=== PATIENT | male | born 1975 | race Caucasian/White ===

== ENCOUNTER → 2021-10-30 10:06 | Outpatient (CLI) | payer OTHER, SELFPAY ==
--- NOTE | ~2021-10-30 | US_ITS ---
US right upper quadrant INDICATION: Elevated liver enzymes PROCEDURE: Realtime right upper abdominal ultrasound. COMPARISON: No prior studies for comparison. FINDINGS: The pancreas is normal without focal mass or pancreatic ductal dilation. Echotexture is in creased, consistent with fatty infiltration. There is normal directional flow in the portal vein. The gallbladder is normal without stones, gallbladder wall thickening or pericholecystic fluid. Comm on bile duct measures 4 mm. No sonographic Neri's sign. IMPRESSION: 1: Hepatic steatosis. Reviewed, dictated and finalized at location A. IMPRESSION: 1: Hepatic steatosis.
== END ==
PROVIDERS: PCP Internal Medicine; Visit Provider Clinical Nurse Specialist
DX: R74.01 Elevation of levels of liver transaminase levels (principal); K76.0 Fatty (change of) liver, not elsewhere classified
CPT/HCPCS: 76705

== ENCOUNTER → 2022-04-04 11:50 | Outpatient (CLI) | payer OTHER, SELFPAY ==
--- NOTE | ~2022-04-04 | XR_ITS ---
EXAMINATION: XR chest 2V DATE: 04/04/2022 12:01 INDICATION: Shortness of breath and cough TECHNIQUE: PA and lateral views of the chest are obtained. COMPARISON: None available FINDINGS: The lungs are free of acute opacities. No pleural effusion or pneumothorax. The cardiomedia stinal silhouette is normal. The visualized bones and soft tissues are unremarkable. IMPRESSION: 1. No acute cardiopulmonary abnormality. Reviewed, dictated and finalized at location B. [employer]
== END ==
PROVIDERS: PCP Nurse Practitioner; Visit Provider Nurse Practitioner
DX: R05.9 Cough, unspecified (principal); R06.02 Shortness of breath
CPT/HCPCS: 71046

== ENCOUNTER 2022-04-07 10:04 | Outpatient (CLI) | payer OTHER, SELFPAY ==
[2022-04-07 20:26] LABS: Prostate Specific Antigen 9.3 ng/mL (< OR = 4.0)
== END 2022-04-07 10:05 | disposition home or self-care (01) ==
LOC: ANHGOSHLAB 10:05
PROVIDERS: PCP Internal Medicine; Visit Provider Internal Medicine
DX: R97.20 Elevated prostate specific antigen [PSA] (principal)
CPT/HCPCS: 36415; 84153

== ENCOUNTER 2022-07-27 08:53 | Emergency (ER) | payer OTHER, SELFPAY ==
--- NOTE | 2022-07-27 09:09 | ED.URI ---
HPI - URI/Sore Throat General Chief Complaint: Upper Respiratory Infection Stated Complaint: sore throat, sinus drainage Source: patient and RN notes reviewed History of Present Illness HPI Narrative: 46-year-old male presents urgent care with complaints of a sore throat and congestion in his chest. Patient reports a cough that is worse at nighttime in the morning. Reports left ear pain yesterday. Patient denies any sinus congestion, fevers, chills, chest pain, shortness of breath, vomiting, or diarrhea. Patient has been taking NyQuil to help him sleep. Some parts of this dictation were generated by voice recognition software and may contain typographical and/or grammatical inaccuracies. Related Data Allergies Allergy/AdvReac Type Severity Reaction Status Date / Time No Known Allergies Allergy Verified 07/27/22 09:05 Review of Systems Review of Systems: Pertinent positives and pertinent negatives per HPI. [facility] Past Medical History Medical History Elevated blood pressure reading in office with diagnosis of hypertension Hypogonadism in male Long-term current use of testosterone replacement therapy Obesity Sleep apnea Surgical History Surgical History Hx of LASIK 2009 Hx of tonsillectomy S/P knee surgery Family History Family History Grandparent Family history of malignant neoplasm of bone Father Family history of malignant neoplasm of thyroid Liver cancer, primary, with metastasis from liver to other site Social History Social History Social History: caffeine-soda daily Smoking status: Never smoker Alcohol intake: current Alcohol use details: occasionally Lack of Transportation: No Lack of Food: Never True Current Housing: I Have Housing Concerned About Future Housing: No Difficulty Paying Gas/Electric Bills: No Difficulty Paying for Meds: No Currently Unemployed: No Education: Master's Degree or Higher Difficulty w/ Childcare or Family Care: No Comments At the time of my signature, I reviewed and agree with the nursing past medical, surgical, social, and family history. There is no relevant family history pertinent to the patient complaint. Exam Narrative: GENERAL: This is a well-nourished, well-developed patient, in no apparent distress. HEAD: normocephalic, atraumatic. EYES: Sclera clear/white. Vision is grossly intact. EARS: External ears normal, auditory canals clear and without drainage, TMs normal without perforation. Hearing grossly intact. NOSE: External nose normal with no obvious nasal discharge, nares without redness, no rhinorrhea. THROAT: Mucous membranes moist, posterior pharynx clear. Hoarse voice. NECK: Neck supple, non-tender without lymphadenopathy, masses or thyromegaly. CARDIOVASCULAR: Regular rate and rhythm without murmurs, gallops, or rubs. RESPIRATORY: Clear to auscultation. Breath sounds equal bilaterally. No wheezes, rales, or rhonchi. SKIN: warm, intact with no suspicious lesions or rash, good texture and turgor. NEURO: awake, alert, and oriented to person, place and time. There were no obvious focal neurologic abnormalities. Course Course Level of Care: Express Care Visit Vital Signs Vital signs: Vital Signs Temperature 98.4 F 07/27/22 09:11 Pulse Rate 90 07/27/22 09:11 Respiratory Rate 16 07/27/22 09:11 Blood Pressure 129/76 07/27/22 09:11 Pulse Oximetry 98 07/27/22 09:11 Temperature 98.4 F 07/27/22 09:11 Pulse Rate 90 07/27/22 09:11 Respiratory Rate 16 07/27/22 09:11 Blood Pressure 129/76 07/27/22 09:11 Pulse Oximetry 98 07/27/22 09:11 Reviewed MDM - URI/Sore Throat MDM Narrative Medical decision making narrative: Rapid strep is negative in the office; phil
[2022-07-27 09:11] VITALS: BP 129/76; PULSE 90; RESP 16; TEMP 36.9; O2SAT 98
== END 2022-07-27 09:36 | disposition home or self-care (01) ==
PROVIDERS: Emergency Provider Nurse Practitioner Family; PCP Internal Medicine
DX: B34.9 Viral infection, unspecified (principal); J02.9 Acute pharyngitis, unspecified; E66.9 Obesity, unspecified; Z68.33 Body mass index [BMI] 33.0-33.9, adult
CPT/HCPCS: 87081; 87147; 87880; 99213; G0463

== ENCOUNTER 2023-09-22 10:02 | Outpatient (CLI) | payer OTHER, SELFPAY ==
[2023-09-22 11:26] LABS: Kit Draw Collected
== END 2023-09-22 10:03 | disposition home or self-care (01) ==
LOC: ANHGOSHLAB 10:03
PROVIDERS: PCP Internal Medicine; Visit Provider Internal Medicine
DX: Z76.89 Persons encountering health services in other specified circumstances (principal)
CPT/HCPCS: 36415

== ENCOUNTER 2023-10-29 11:17 | Emergency (ER) | payer OTHER, SELFPAY ==
[2023-10-29 11:34] VITALS: BP 143/92; PULSE 74; RESP 16; TEMP 36.6; O2SAT 98
[2023-10-29 11:36] VITALS: BP 143/92; PULSE 74; RESP 16; TEMP 36.6; O2SAT 98
--- NOTE | 2023-10-29 11:39 | ED.URI ---
HPI - URI/Sore Throat General Chief Complaint: Upper Respiratory Infection Stated Complaint: Strep Test Time Seen by Provider: 10/29/23 11:39 Source: patient, RN notes reviewed and old records reviewed Mode of arrival: ambulatory Limitations: no limitations History of Present Illness HPI Narrative: 48 year old male presets to [facility] care with complaints of severe sore throat since Thursday with no known fevers, chills, or body aches or any cough or runny nose. Patient reports that he just returned from [place] on Thursday, has had some diarrhea yesterday but none today. Patient reports that he has had a history of strep in the past which at times has not shown up till culture. Patient is still taking Doxycycline daily as part of protocol for travel to [place]. MD elicited complaint: sore throat and other (diarrhea yesterday) Pertinent past history: other (strep) Onset (ago): day(s) (2) Consistency: constant Pain scale (0-10): 7 Able to tolerate fluids by mouth: Yes Exacerbating factors: swallowing Treatments prior to arrival: other (lozenges for sore throat) Related Data Home Medications Medication Instructions Recorded Confirmed doxycycline hyclate 100 mg tablet 100 mg PO DAILY 10/29/23 10/29/23 Allergies Allergy/AdvReac Type Severity Reaction Status Date / Time No Known Allergies Allergy Verified 10/29/23 11:25 Review of Systems Review of Systems: CONSTITUTIONAL: Denies malaise, chills, sweats, or fever. EYES: Denies visual changes, redness, or discharge. ENT: Reports no rhinorrhea, congestion, sinus pain, otalgia and positive for sore throat. CARDIOVASCULAR: Denies chest pain, palpitations, or edema. RESPIRATORY: Reports no cough.? Denies dyspnea. GASTROINTESTINAL: Denies abdominal pain, nausea, vomiting, episodes diarrhea yesterday none today SKIN: Denies rash or itching. MUSCULOSKELETAL: Denies myalgia. NEUROLOGIC: Denies headache. All systems reviewed & are unremarkable except as noted in HPI and below PMFSH Past Medical History Medical History Elevated blood pressure reading in office with diagnosis of hypertension Fatty liver disease, nonalcoholic Hypogonadism in male Long-term current use of testosterone replacement therapy Obesity Sleep apnea Surgical History Surgical History Hx of LASIK 2009 Hx of tonsillectomy S/P knee surgery Family History Family History Grandparent Family history of malignant neoplasm of bone Father Family history of malignant neoplasm of thyroid Liver cancer, primary, with metastasis from liver to other site Social History Social History Social History: caffeine-soda daily Smoking status: Never smoker Alcohol intake: current Alcohol use details: occasionally Do You Feel Safe in your Home?: Yes Lack of Transportation: No Lack of Food: Never True Current Housing: I Have Housing Concerned About Future Housing: No Difficulty Paying Gas/Electric Bills: No Difficulty Paying for Meds: No Currently Unemployed: No Education: Master's Degree or Higher Difficulty w/ Childcare or Family Care: No Comments At time of signature, agree with nursing past medical, surgical, social and family history. There is no relevant family history pertinent to the presenting complaint Exam Narrative: GENERAL: Well-appearing, well-nourished, and in no acute distress. HEAD: Normocephalic EYES: PERRLA, conjunctivae clear ENT: Nares clear, turbinates edematous and erythematous, clear discharge. Mucous membranes moist. TM pearly palencia with dull light reflex bilaterally; no tragal tenderness. Oropharynx erythematous without lesions. Tonsils not present and throat without exudate, no drooling, no hoarseness, no trismus, no uvula
[2023-10-29 12:02] LABS: EDSTREPNEGPOS1 Presumptive Negative
== END 2023-10-29 12:36 | disposition home or self-care (01) ==
PROVIDERS: Emergency Provider Registered Nurse; PCP Internal Medicine
DX: J02.9 Acute pharyngitis, unspecified (principal); Z20.822 Contact with and (suspected) exposure to COVID-19; I10 Essential (primary) hypertension; K76.0 Fatty (change of) liver, not elsewhere classified; E66.9 Obesity, unspecified; Z68.34 Body mass index [BMI] 34.0-34.9, adult
CPT/HCPCS: 87081; 87426; 87880; 99213; G0463